=== PATIENT | male | born 1980 | race Caucasian/White ===

== ENCOUNTER 2024-05-15 12:26 | Emergency (ER) | payer BC ==
[2024-05-15] MEDS: Lidocaine 1% 5 ML VIAL INJECT ONE (15:27)
[2024-05-15] MEDS: Bacitracin Oint 1 GM U/D Packet TOP ONE (15:27)
== END 2024-05-15 15:33 | disposition home or self-care (01) ==
LOC: JP.ED 12:26
DX: S61.210A Laceration without foreign body of right index finger without damage to nail, initial encounter (principal); I10 Essential (primary) hypertension; W23.1XXA Caught, crushed, jammed, or pinched between stationary objects, initial encounter
CPT/HCPCS: 12001; 99282; 99283